=== PATIENT | female | born 1950 | race Caucasian/White ===

== ENCOUNTER 2018-03-22 11:41 | Emergency (ER) | payer MEDICARE, OTHER ==
[~2018-03-22] VITALS: Ht 152.4 cm; Wt 44.5 kg
[~2018-03-22 11:41] MED LIST: ACETAMINOPHEN325 M1 PO; ASPIR 8181 M1 PO; ATORVASTATIN CA20 MG PO; ATROVENT HFA14 GM; AZITHROMYCIN 2250 MG PO; COLACE 100 MG100 MG PO; DUONEB 2.5-0.5 M3 ML INH; IPRATROPIU0.2 MG/1 M INH; LISINOPRIL2.5 MG PO; LO-DOSE ASPIRIN81 M1 PO; LOPRESSOR25 PO; METOPROLOL SUCC25 M1 PO; MOBIC7.5 MG PO; MUCINEX600 MG PO; NICOTINE TRANSD21 M1 TD; NITROGLYCERIN0.4 MG SL; NORCO 5-325 TA1 EACH PO; PAXIL40 MG PO; PLAVIX 75 MG TA75 MG PO; PREDNISONE 10 M10 M1 PO; PREDNISONE 20 M20 M1 PO; PREDNISONE 20 M20 MG PO; SINGULAIR 10 MG10 M1 PO; SYMBICORT160 MCG/4. INH; ULTRAM 50MG TAB50 MG PO; XANAX 0.5 MG0.5 MG PO; ZPAK PO
[2018-03-22] MEDS ORDERED: LIPITOR10 MG PO (12:00)
[2018-03-22] MEDS ORDERED: NAPROSYN500 MG PO (12:00)
[2018-03-22] MEDS ORDERED: OSTERA TABLET1 EAC1 PO (12:00)
[2018-03-22] MEDS ORDERED: PRINIVIL10 MG PO (12:00)
[2018-03-22] MEDS ORDERED: FOLBIC RF TABL1 EACH PO (12:01)
[2018-03-22 12:29] LABS: ABSOLUTE BASOPHILS 0.1 thou/uL (0.0-0.2); ABSOLUTE EOSINOPHILS 0.2 thou/uL (0.0-0.7); ABSOLUTE LYMPHOCYTES 1.5 thou/uL (0.8-5.3); ABSOLUTE MONOCYTES 0.4 thou/uL (0.0-1.2); ABSOLUTE NEUTROPHILS 4.4 thou/uL (1.6-8.1); BASOPHILS 0.9 %; EOSINOPHILS 3.8 %; HEMATOCRIT 31.7 % (37.0-47.0); HEMOGLOBIN 10.4 gm/dL (12.0-15.0); LYMPHOCYTES 22.3 %; MCH 31.8 pg (26.0-34.0); MCHC 32.9 g/dL (28.0-37.0); MCV 96.8 fL (80.0-100.0); MONOCYTES 6.3 %; MPV 8.7 fl. (7.2-11.1); NUCLEATED RBCS 0 /100WBC; PLATELET COUNT* 213 thou/uL (150-400); POLYS 66.7 %; RBC 3.28 mil/uL (4.20-5.00); RDW-CV 14.1 % (10.5-14.5); WBC 6.5 thou/uL (4.0-11.0)
[2018-03-22 12:39] LABS: ANION GAP 4 mmol/L (7-16); BUN 13 mg/dL (7-18); CALCIUM 8.7 mg/dL (8.5-10.1); CHLORIDE 106 mmol/L (98-107); CO2 32 mmol/L (21-32); CREATININE 0.8 mg/dL (0.6-1.3); GLUCOSE 80 mg/dL (70-99); POTASSIUM 3.4 mmol/L (3.5-5.1); SODIUM 142 mmol/L (136-145)
[2018-03-22 12:48] LABS: ALBUMIN 3.5 g/dL (3.4-5.0); ALKALINE PHOSPHATASE 124 U/L (46-116); LIPASE 69 U/L (73-393); SGOT 22 U/L (15-37); SGPT 19 U/L (30-65); TOTAL BILIRUBIN 0.4 mg/dL (<0.1-1.0); TOTAL PROTEIN 7.2 g/dL (6.4-8.2); TROPONIN-I LEVEL <0.06 ng/mL (<0.06)
[2018-03-22 13:10] LABS: URINE BILIRUBIN NEGATIVE (Negative); URINE BLOOD NEGATIVE (Negative); URINE CLARITY CLEAR; URINE COLOR YELLOW; URINE GLUCOSE-RANDOM NEGATIVE (Negative); URINE KETONES NEGATIVE (Negative); URINE LEUKOCYTES-REFLEX NEGATIVE (Negative); URINE NITRITE-REFLEX NEGATIVE (Negative); URINE PROTEIN NEGATIVE (Negative); URINE UROBILINOGEN 0.2 E.U./dl (0.2-1.0)
[2018-03-22] MEDS ORDERED: ROBAXIN 750 MG750 MG PO (13:34)
[2018-03-22] MEDS ORDERED: TORADOL 10 MG T10 MG PO (13:34)
[2018-03-22 13:51] VITALS: BP 106/56
--- NOTE | 2018-03-23 16:41 | EKG ---
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 03/23/18 164 25 25 Kel Contreras MD, [facility] /EPI
== END 2018-03-22 13:52 | disposition home or self-care (01) ==
LOC: M.ERS 11:41
PROVIDERS: Nurse Practitioner Family
DX: S23.3XXA Sprain of ligaments of thoracic spine, initial encounter (principal); J44.9 Chronic obstructive pulmonary disease, unspecified; F41.9 Anxiety disorder, unspecified; F32.9 Major depressive disorder, single episode, unspecified; Z87.01 Personal history of pneumonia (recurrent); I25.2 Old myocardial infarction; F17.210 Nicotine dependence, cigarettes, uncomplicated; X58.XXXA Exposure to other specified factors, initial encounter; Y93.89 Activity, other specified; Y92.89 Other specified places as the place of occurrence of the external cause; Y99.8 Other external cause status

== ENCOUNTER 2018-05-02 11:22 | Emergency (ER) | payer MEDICARE, OTHER ==
[~2018-05-02] VITALS: Ht 152.4 cm; Wt 43.7 kg
[~2018-05-02 11:22] MED LIST changes: +FOLBIC RF TABL1 EACH PO; +LIPITOR10 MG PO; +NAPROSYN500 MG PO; +OSTERA TABLET1 EAC1 PO; +PRINIVIL10 MG PO; +ROBAXIN 750 MG750 MG PO; +TORADOL 10 MG T10 MG PO
[2018-05-02 12:04] LABS: ABSOLUTE BASOPHILS 0.1 thou/uL (0.0-0.2); ABSOLUTE EOSINOPHILS 0.1 thou/uL (0.0-0.7); ABSOLUTE LYMPHOCYTES 1.5 thou/uL (0.8-5.3); ABSOLUTE MONOCYTES 0.9 thou/uL (0.0-1.2); ABSOLUTE NEUTROPHILS 11.6 thou/uL (1.6-8.1); BASOPHILS 0.4 %; EOSINOPHILS 0.7 %; HEMATOCRIT 35.8 % (37.0-47.0); HEMOGLOBIN 11.8 gm/dL (12.0-15.0); LYMPHOCYTES 10.8 %; MCH 31.2 pg (26.0-34.0); MCHC 32.9 g/dL (28.0-37.0); MONOCYTES 6.6 %; MPV 8.8 fl. (7.2-11.1); NUCLEATED RBCS 0 /100WBC; PLATELET COUNT* 235 thou/uL (150-400); POLYS 81.5 %; RBC 3.77 mil/uL (4.20-5.00); RDW-CV 13.4 % (10.5-14.5); WBC 14.2 thou/uL (4.0-11.0)
[2018-05-02 12:12] LABS: ANION GAP 6 mmol/L (7-16); BUN 11 mg/dL (7-18); CALCIUM 9.1 mg/dL (8.5-10.1); CHLORIDE 100 mmol/L (98-107); CO2 32 mmol/L (21-32); CREATININE 0.7 mg/dL (0.6-1.3); GLUCOSE 108 mg/dL (70-99); POTASSIUM 3.9 mmol/L (3.5-5.1); SODIUM 138 mmol/L (136-145)
[2018-05-02 12:19] LABS: ALBUMIN 3.3 g/dL (3.4-5.0); ALKALINE PHOSPHATASE 162 U/L (46-116); SGOT 20 U/L (15-37); SGPT 15 U/L (30-65); TOTAL BILIRUBIN 0.4 mg/dL (<0.1-1.0); TOTAL PROTEIN 7.9 g/dL (6.4-8.2); TROPONIN-I LEVEL <0.06 ng/mL (<0.06)
[2018-05-02 12:56] LABS: URINE BILIRUBIN NEGATIVE (Negative); URINE BLOOD NEGATIVE (Negative); URINE CLARITY CLEAR; URINE COLOR YELLOW; URINE GLUCOSE-RANDOM NEGATIVE (Negative); URINE KETONES NEGATIVE (Negative); URINE LEUKOCYTES-REFLEX NEGATIVE (Negative); URINE NITRITE-REFLEX NEGATIVE (Negative); URINE PROTEIN 2+ (Negative)
[2018-05-02 13:11] LABS: BACTERIA-REFLEX 1-9 Few /HPF (None Seen); CASTS None Seen /LPF (None Seen); CRYSTALS None Seen /LPF (None Seen); MUCUS 0-3 Light strn/LPF (None Seen); SQUAMOUS 0-3 Few /LPF (0-3); URINE RBC 0-2 Rare /HPF (0-2); URINE WBC-REFLEX 0-5 Rare /HPF (0-5)
[2018-05-02] MEDS ORDERED: PREDNISONE 20 M20 MG PO (14:09)
[2018-05-02] MEDS ORDERED: ZITHROMAX TRI-500 MG PO (14:09)
[2018-05-02 14:20] VITALS: BP 91/51
--- NOTE | 2018-05-02 14:55 | EKG ---
[place] [address] ELECTROCARDIOGRAM REPORT Name: FREDINEAL E Room: [facility]#: [id number] Admission: 05/02/18 Attend Phys: Discharge: 05/02/18 Date of : 54 Report #: [id number] THIS REPORT FOR: //name// [facility] ED Test Date: 2018-05-02 Test Time: 12:26:29 Pat Name: NEAL RAI Department: Room: Gender: F Case Investigator: Adolph ESPINO : 1950 Requested By: Michaela Townsend Order Number: [id number] MD: Benjamin Carmona Measurements Intervals [place] Rate: 83 P: 79 MD: 135 QRS: 71 QRSD: 94 T: 13 QT: 371 QTc: 436 Interpretive Statements Sinus rhythm Atrial premature complex Consider left ventricular hypertrophy Borderline T abnormalities, inferior leads Compared to ECG 03/22/2018 12:26:27 T-wave abnormality now present Q waves no longer present ST (T wave) deviation no longer present Electronically Signed On 05-02-2018 14:55:30 CDT by Benjamin Carmona [email or web address] <ELECTRONICALLY SIGNED> By: Benjamin Carmona MD, FACC 05/02/18 1455 1226 1226 Benjamin Carmona MD, [facility] /EPI
== END 2018-05-02 14:21 | disposition home or self-care (01) ==
LOC: M.ERS 11:22
PROVIDERS: Physician Assistant Surgical
DX: J44.1 Chronic obstructive pulmonary disease with (acute) exacerbation (principal); I25.2 Old myocardial infarction; F17.210 Nicotine dependence, cigarettes, uncomplicated